=== PATIENT | male | born 1985 | race Caucasian/White ===

== ENCOUNTER 2017-11-12 05:21 | Emergency (ER) | payer SELFPAY ==
[~2017-11-12] VITALS: Ht 182.9 cm; Wt 66.0 kg
[2017-11-12 05:24] VITALS: BP 118/75
== END 2017-11-12 08:46 | disposition left against medical advice (07) ==
LOC: ER 05:21
DX: F19.10 Other psychoactive substance abuse, uncomplicated (principal); Z53.21 Procedure and treatment not carried out due to patient leaving prior to being seen by health care provider